=== PATIENT | male | born 1970 | race Hispanic/Latino ===

== ENCOUNTER → 2018-07-06 | Outpatient (CLI) | payer BC ==
--- NOTE | 2018-07-06 11:56 | Diagnostic Imaging Report ---
EXAMINATION: Scrotal ultrasound CLINICAL INDICATION: . COMPARISON: None. TECHNIQUE: Grayscale and color Doppler evaluation of the scrotum was performed in transverse and longitudinal planes. FINDINGS: The right testicle measures 4 x 2.2 x 3.6 cm. No masses or calcifications.. The right epididymis measures 1 x 0.4 x 0.7 cm. No nodules or masses.. Small right hydrocele. Normal flow to the right testicle, without torsion. The left testicle measures 4.6 x 2.4 x 3.2 cm. No masses or calcifications.. The left epididymis measures 1.2 x 1 x 1.2 cm. Left epididymal head cyst 0.7 cm.. No left hydrocele or varicocele. Normal flow to the left testicle without torsion. The scrotum has a normal appearance, without focal lesions. Impression: No finding of torsion or epididymitis. Small right hydrocele. Signed by: Dr. Reilly Worthy M.D. on 07/06/2018 11:52 AM
--- NOTE | 2018-07-06 12:21 | Diagnostic Imaging Report ---
Exam:Abdominal radiograph History:Renal calculi. Comparison: None available Findings:Nonobstructive bowel gas pattern. No radiographic renal calculi. Bones unremarkable. Impression: No radiographic renal calculi Signed by: Dr. Reilly Worthy M.D. on 07/06/2018 12:18 PM
== END ==
LOC: US 10:08
PROVIDERS: ATTEND Urology
DX: N45.3 Epididymo-orchitis (principal); Z87.442 Personal history of urinary calculi
CPT/HCPCS: 74018; 76870; 93976